=== PATIENT | female | born 1980 | race Caucasian/White ===

== ENCOUNTER 2016-10-18 20:42 | Emergency (ER) | payer OTHER ==
[~2016-10-18] VITALS: Ht 165.1 cm; Wt 72.1 kg
[~2016-10-18 20:42] MED LIST: ACETAMINOP160 MG/51 PO; IBUPROFEN100 MG/5 M PO
[2016-10-18 21:25] LABS: MCH 30.7 PG (29.0-34.0); MCHC 34.5 G/DL (30.0-36.0); MEAN PLAT.VOLUME 10.4 uM^3 (9.5-12.4); PLATELET COUNT 199 K/uL (156-360); RBC DIS.WIDTH-CV 12.4 % (11.8-14.6); RBC DIS.WIDTH-SD 39.8 % (39-53); RED BLOOD COUNT 4.27 M/uL (3.80-5.20); WHITE BLOOD COUNT 6.3 K/uL (4.1-10.2)
[2016-10-18 21:36] LABS: CHLORIDE 106 mEq/L (99-109); POTASSIUM 3.5 mEq/L (3.7-5.4); SODIUM 139 mEq/L (136-147)
[2016-10-18 21:38] LABS: GLUCOSE 86 mg/dL (70-99)
[2016-10-18 21:40] LABS: ANION GAP 9 MEQ/L (2-14); TOTAL BILIRUBIN 0.3 mg/dL (0.0-1.0)
[2016-10-18 21:42] LABS: ALKALINE PHOSPHATASE 52 IU/L (3-129); GFR ESTIMATE (CALCULATED) > 59 mL/min/
[2016-10-18 21:43] LABS: UREA NITROGEN (BUN) 14 mg/dL (9-23)
[2016-10-18 21:45] LABS: LIPASE 8 U/L (1.0-51.0)
[2016-10-18 21:53] LABS: ADD MIUA? NO; BILIRUBIN NEGATIVE; BLOOD NEGATIVE; COLOR YELLOW ((YELLOW)); GLUCOSE (STRIP) NEGATIVE; KETONES NEGATIVE; LEUKOCYTES NEGATIVE; NITRITE NEGATIVE; PROTEIN (STRIP) NEGATIVE; SPECIFIC GRAVITY 1.027 (1.000-1.030); UCUL ADDED? NO; UROBILINOGEN 0.2 MG/DL (0.2-1.0)
[2016-10-18 21:54] LABS: QUANTITATIVE HCG < 4.0 MIU/ML
[2016-10-18] MEDS ORDERED: CARAFATE1 GM PO (23:34)
[2016-10-18 23:49] VITALS: BP 121/72
== END 2016-10-18 23:50 | disposition home or self-care (01) ==
LOC: EME → EDBD 20:42 → EME 23:50
DX: R10.9 Unspecified abdominal pain (principal); F17.200 Nicotine dependence, unspecified, uncomplicated
CPT/HCPCS: 74176; 80053; 81003; 83690; 84702; 85027; 99281; 99284; J3010; J7030